=== PATIENT | female | born 1990 | race Caucasian/White ===

== ENCOUNTER → 2020-03-29 10:03 | Outpatient (BNVA) | payer SELFPAY | PROVIDERS: PCP Obstetrics & Gynecology; Visit Provider Nurse Practitioner Family | DX: J02.9 Acute pharyngitis, unspecified (principal) | CPT/HCPCS: 87880 ==

== ENCOUNTER → 2020-10-25 13:01 | Outpatient (BNVA) | payer MEDICAID, SELFPAY | PROVIDERS: PCP Obstetrics & Gynecology; Visit Provider Nurse Practitioner Women's Health | DX: N92.6 Irregular menstruation, unspecified (principal); Z32.01 Encounter for pregnancy test, result positive | CPT/HCPCS: 81025 ==

== ENCOUNTER → 2020-11-01 10:05 | Outpatient (BNVA) | payer MEDICAID, SELFPAY | PROVIDERS: PCP Obstetrics & Gynecology; Visit Provider Nurse Practitioner Women's Health | DX: O99.340 Other mental disorders complicating pregnancy, unspecified trimester (principal); F32.9 Major depressive disorder, single episode, unspecified | CPT/HCPCS: 81000 ==

== ENCOUNTER → 2020-11-06 08:57 | Outpatient (BNVA) | payer MEDICAID, SELFPAY | PROVIDERS: PCP Obstetrics & Gynecology; Visit Provider Obstetrics & Gynecology | DX: Z34.80 Encounter for supervision of other normal pregnancy, unspecified trimester (principal); K42.9 Umbilical hernia without obstruction or gangrene | CPT/HCPCS: 80307; 81000; 85027; 86592; 86762; 86803; 86850; 86900; 87086; 87340; 87806 ==

== ENCOUNTER → 2020-11-18 13:07 | Outpatient (BNVA) | payer MEDICAID, SELFPAY | PROVIDERS: PCP Obstetrics & Gynecology; Visit Provider Obstetrics & Gynecology | DX: O09.299 Supervision of pregnancy with other poor reproductive or obstetric history, unspecified trimester (principal) | CPT/HCPCS: 81000; 82950; 87491; 87591 ==

== ENCOUNTER → 2020-12-04 11:07 | Outpatient (BNVA) | payer MEDICAID, SELFPAY | PROVIDERS: PCP Obstetrics & Gynecology; Visit Provider Nurse Practitioner Women's Health | DX: O09.299 Supervision of pregnancy with other poor reproductive or obstetric history, unspecified trimester (principal); Z34.80 Encounter for supervision of other normal pregnancy, unspecified trimester; R45.86 Emotional lability; Z87.59 Personal history of other complications of pregnancy, childbirth and the puerperium; Z86.59 Personal history of other mental and behavioral disorders; K42.9 Umbilical hernia without obstruction or gangrene | CPT/HCPCS: 81000; 82105; 84439; 84443 ==

== ENCOUNTER 2021-01-16 19:55 | Outpatient (CLI) | payer MEDICAID, SELFPAY ==
[2021-01-16 19:55] VITALS: BMI 28.8
[2021-01-16 20:06] VITALS: BP 132/86; PULSE 101; TEMP 36.1
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
[2021-01-16 21:00] VITALS: BP 111/71; PULSE 95; RESP 16; TEMP 36.2
[2021-01-16 21:07] VITALS: BP 113/75; PULSE 92
[2021-01-16 21:29] VITALS: BP 111/71; PULSE 95; TEMP 36.4
== END 2021-01-16 21:00 | disposition home or self-care (01) ==
LOC: OPOB 19:56 → OBGYN 19:56
PROVIDERS: PCP Obstetrics & Gynecology; Visit Provider Obstetrics & Gynecology
DX: O99.891 Other specified diseases and conditions complicating pregnancy (principal); S39.91XA Unspecified injury of abdomen, initial encounter; X58.XXXA Exposure to other specified factors, initial encounter
CPT/HCPCS: 76815; 99211

== ENCOUNTER → 2021-01-27 10:31 | Outpatient (BNVA) | payer MEDICAID, SELFPAY | PROVIDERS: PCP Obstetrics & Gynecology; Visit Provider Nurse Practitioner Women's Health | DX: Z34.80 Encounter for supervision of other normal pregnancy, unspecified trimester (principal) | CPT/HCPCS: 81000 ==

== ENCOUNTER → 2021-02-18 11:39 | Outpatient (BNVA) | payer MEDICAID, SELFPAY | PROVIDERS: PCP Obstetrics & Gynecology; Visit Provider Obstetrics & Gynecology | DX: Z34.80 Encounter for supervision of other normal pregnancy, unspecified trimester (principal) | CPT/HCPCS: 81000; 82950; 85027 ==

== ENCOUNTER → 2021-04-02 09:15 | Outpatient (BNVA) | payer MEDICAID, SELFPAY | PROVIDERS: Visit Provider Obstetrics & Gynecology | DX: O36.63X0 Maternal care for excessive fetal growth, third trimester, not applicable or unspecified; O99.343 Other mental disorders complicating pregnancy, third trimester; R45.86 Emotional lability; O99.613 Diseases of the digestive system complicating pregnancy, third trimester; K42.9 Umbilical hernia without obstruction or gangrene; Z3A.34 34 weeks gestation of pregnancy | CPT/HCPCS: 81000 ==

== ENCOUNTER → 2021-04-16 15:46 | Outpatient (BNVA) | payer MEDICAID, SELFPAY | PROVIDERS: Visit Provider Obstetrics & Gynecology | DX: Z34.80 Encounter for supervision of other normal pregnancy, unspecified trimester (principal) | CPT/HCPCS: 81000; 87081 ==

== ENCOUNTER → 2021-04-21 13:10 | Outpatient (BNVA) | payer MEDICAID, SELFPAY | PROVIDERS: Visit Provider Obstetrics & Gynecology | DX: O36.60X0 Maternal care for excessive fetal growth, unspecified trimester, not applicable or unspecified (principal); R45.86 Emotional lability; K42.9 Umbilical hernia without obstruction or gangrene | CPT/HCPCS: 81000 ==

== ENCOUNTER 2021-05-04 01:31 | Inpatient (IN) | payer MEDICAID, SELFPAY ==
[2021-05-04] VITALS (30 sets, daily range): BP systolic 113–187; BP diastolic 65–98; PULSE 78–111; RESP 16–18; TEMP 36.7–37.1; BMI 30.4
--- NOTE | 2021-05-04 01:45 | P.HP_ITS ---
Providers/Chief Complaint Admitting Physician: Dina Brasher Primary HEALTH AND SAFETY TECHNICIAN: Dr. Vargas Chief Complaint: POSSIBLE ROM, CONTRACTIONS HPI HEALTH AND SAFETY TECHNICIAN History of Present Illness Yamileth Zacarias is a 31 year old female who reports a gush of fluid shortly before arrival accompanied by frequent and painful contractions. She is a at 38w 6d gestation with uncomplicated care. She reports good FM, Pos LOF, Denies vaginal bleeding and has frequent painful contractions occurring every 3 minutes. She has a hx of macrosomia with her last baby weighing over 9#. Present Details : 4 Para: 2 Date of Last Menstrual Period: 08/05/20 Calculated Date of Delivery: 05/12/21 Gestational Age Based on Last Menstrual Period: 38 Labs Rubella: Immune RPR: Negative GBS: Negative Review of Systems General: Reports: 10 or more systems reviewed and unremarkable except in HPI and below Medications/Allergies Home Medications Medication Instructions Recorded Confirmed Last Taken Type prenat.vits,ammon,sab-gdgk-dufyx 1 tab PO QDAY 02/24/19 05/04/21 2 Days Ago History ~05/02/21 cholecalciferol (vitamin D3) 50 50 mcg PO DAILY 03/29/20 05/04/21 2 Days Ago History mcg (2,000 unit) capsule ~05/02/21 folic acid 400 mcg tablet 0.4 mg PO DAILY 03/29/20 05/04/21 2 Days Ago History ~05/02/21 acetaminophen 500 mg tablet 1,000 mg PO Q6H PRN tab 11/18/20 05/04/21 05/02/21 History (Tylenol Extra Strength) ascorbate calcium (vitamin C) PO 03/03/21 04/28/21 2 Days Ago History ~05/02/21 breast pump (Pump In Style #1 ea 03/03/21 04/28/21 Unknown Rx Advanced) buspirone 15 mg tablet 15 mg PO BID #90 tab 04/21/21 05/04/21 05/03/21 21:00 Rx Allergies Allergy/AdvReac Type Severity Reaction Status Date / Time No Known Allergies Allergy Verified 05/04/21 02:57 PFSH HEALTH AND SAFETY TECHNICIAN PFSH: Medical History 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 Arcenio venegas. 06/2016: Toxo PCR negative, IgM negative, IgG positive. No pertinent past medical history Denies diabetes, asthma, hypertension, seizures, DVT/PE PCP: None Surgical History History of appendectomy 2007--laparoscopic procedure History of surgical removal of ganglion cyst 2010----left wrist [place] teeth extracted Family History Father Thyroid condition Family/Other Stroke Paternal great uncle Heart disease Maternal great aunt Grandfather Stroke Paternal Hypertension Paternal Denies family history of Colon cancer Ovarian cancer Diabetes Hyperlipidemia Breast cancer Uterine cancer Other Female Reproductive History: Hx Age of Menarche: 12 History History History 4 Term 2 Miscarriages/Ectopic 1 0 Living Children 2 Care SREEDHAR Calculator Estimated Delivery Date Method Current WG Current Estimate 05/12/21 LMP (Certain) 38w 6d Other Estimates 05/06/21 Ultrasound #1 39w 5d Expected Delivery Route/Plan Vaginal Specific Issues/Plans * Anxiety-present throughout the -patient started medication-BuSpar 7.5 mg at 32 weeks. Increase to 15 mg twice daily at 34 weeks and she is doing well with this dose-refill provided on the * History of LGA-early GCT and 28-week GCT negative. * Incarcerated umbilical hernia-status post surgery consult--reassess orders problems develop intrapartum * Macrosomia in the 91st percentile-sonogram for growth at 36 weeks- growth at 97th percentile Vitals/I&O/Wt Last Vital Signs Temp 98.8 F 05/04/21 10:21 Pulse 98 05/04/21 10:18 Resp 16 05/04/21 10:21 BP 113/66 05/04/21 10:18 05/03/21 05/04/21 05/04/21 22:59 06:59 14:59 Output Total 50 / 50 500 / 500 Balance -50 / -50 -500 / -500 Weight last 48 hrs Weight 172 lb Weight 172 lb 0.004 oz Physical Exam Narrative: alert and appropriate. cooperative and in mild distress with painful contractions Const: COMMON NORMALS: average body habitus, patient oriented x3, healthy appearing and well nourished HENMT: COMMON NORMALS: normocephalic, atraumatic, hearing grossly normal bilaterally, external ears normal, Normal external nose present, moist oral mucous membranes and dentition normal Eye: COMMON NORMALS: EOMs intact bilaterally, conjunctivae normal and no scleral icterus Neck/C-Spine: COMMON NORMALS: full ROM, no lymphadenopathy, supple, no JVD and Thyroid normal Lymph: LYMPHATIC: no lymphadenopathy noted and no lymphedema noted Chest: COMMONS NORMALS: normal inspection of the chest and normal inspection of the breasts Resp: COMMON NORMALS: normal respiratory effort, No retractions and No use of accessory muscles Cardio: COMMON NORMALS: no JVD, regular rate, regular rhythm and Peripheral pulses 2+ throughout GI: COMMON NORMALS: Normal to inspection, nondistended, normoactive bowel sounds present, Soft to palpation and non-tender : COMMON NORMALS: Yes no CVA tenderness, Yes normal external appearance, Yes normal appearance of the vagina and Yes normal appearance of the cervix OB/EXTERNAL & SPECULUM: external exam normal; No no bleeding and no MANUAL OB EXAM: dilated 8 cm, effaced 75%, station -2 and other (SROM with small clear fluid) Back/Pelvis: COMMON NORMALS: no CVA tenderness and thoracic and lumbar spine normal to inspection Extremity: COMMON NORMALS: normal to inspection, full ROM, capillary refill normal and no clubbing, cyanosis or edema Neuro: COMMON NORMALS: patient oriented x3, moves all extremities, no focal motor deficits and no sensory deficits noted Psych: COMMON NORMALS: mental status grossly normal, Normal thought process present, cooperative, normal affect and speech normal Skin: COMMON NORMALS: no rashes or lesions noted, no wounds, turgor normal and no jaundice Data : 05/04/21 01:30 A&P Assessment and plan (1) macrosomia affecting management of mother, antepartum: Status: Acute (2) Mood swing: Status: Acute (3) Umbilical hernia: Status: Acute (4) Supervision of other normal : Status: Acute (5) Active labor at term: admit anticipate Status: Acute Attestations Medical Necessity Statement*: admitted with 38w6d gestation in active labor with SROM Time Spent in Patient Care: 30 Coding Level of Care Code Acute Microsoft Architect for Chg Fwd Diagnoses macrosomia affecting management of mother, antepartum O36.60X0 Mood swing R45.86 Umbilical hernia K42.9 Supervision of other normal Z34.80 Active labor at term
[2021-05-04 01:56] LABS: Basophils % 0.2 %; Eosinophils # 0.1 10^3/uL (0.0-0.8); Hematocrit 39.7 % (37.0-47.0); Hemoglobin 13.5 g/dL (11.5-15.3); Lymphocytes # 2.5 10^3/uL (0.8-4.8); Mean Corpuscular Hemoglobin 29.9 pg (28.0-34.0); Mean Corpuscular Volume 87.8 fl (81-99); Mean Platelet Volume 12.3 fL (7.4-10.4); Monocytes # 0.8 10^3/uL (0.2-0.9); Monocytes % 9.5 %; Neutrophils # 4.73 10^3/uL (1.8-7.7); Neutrophils % 57.7 %; Nucleated Red Blood Cells % 0 %; Platelet Count 173 10^3/cmm (130-400); Red Blood Count 4.52 10^6/uL (4.1-5.3); Red Cell Distribution Width 14.4 % (12.1-15.1); White Blood Count 8.2 10^3/uL (4.0-10.0)
[2021-05-04] MEDS: benzocaine-menthol 78 gm Canister 1 SPRAY TOPICAL (04:45)
[2021-05-04] MEDS: lanolin oint 7 gm 1 APPLIC TOPICAL (04:45)
[2021-05-04] MEDS: prenatal vitamin Capsule 1 CAP PO (08:30)
[2021-05-04] MEDS: ibuprofen 800 mg tablet PO ×3 (08:30→20:20)
[2021-05-04] MEDS: docusate sodium 100 mg Capsule PO ×2 (08:30→19:31)
--- NOTE | 2021-05-04 12:34 | PM.DELIVERY ---
Delivery Note: Date of delivery: May 04, 2021 Pre-delivery diagnoses: active labor SROM 38w6d gestation Post-delivery diagnoses: same Procedure: Delivering Physician: vicky Brasher Estimated blood loss (mL): 300 Findings: viable male Pre-Delivery Course: pt admitted in active labor with SROM clear fluid at 38w 6d gestation Delivery: pt progressed to complete cervical dilation and delivered a viable male infant from the oa position without complication without anesthesia over a 2nd degree midline laceration. EBL 300ml. Placenta delivered spontaneously intact with a 3 vc. Laceration repaired in a layered fashion woth 3-0 vicryl. Cervix and rectum noted to be intact. No complications. Post-Delivery Status: mom and baby stable History History History 4 Term 2 Miscarriages/Ectopic 1 0 Living Children 2 A&P Assessment and plan (1) Normal spontaneous vaginal delivery: routine care Status: Acute (2) Active labor at term: Status: Acute (3) macrosomia affecting management of mother, antepartum: Status: Acute (4) Mood swing: Status: Acute (5) Umbilical hernia: Status: Acute (6) Supervision of other normal : Status: Acute Coding Level of Care Code Acute Training Personnel Supervisor for Chg Fwd Diagnoses Normal spontaneous vaginal delivery O80 Active labor at term macrosomia affecting management of mother, antepartum O36.60X0 Mood swing R45.86 Umbilical hernia K42.9 Supervision of other normal Z34.80 Time Spent (min) 90
[2021-05-04 14:41] LABS: Hematocrit 33.6 % (37.0-47.0); Hemoglobin 11.2 g/dL (11.5-15.3); Mean Corpuscular HGB Conc 33.3 g/dL (30.0-36.0); Mean Corpuscular Hemoglobin 29.4 pg (28.0-34.0); Mean Corpuscular Volume 88.2 fl (81-99); Mean Platelet Volume 12.5 fL (7.4-10.4); Platelet Count 165 10^3/cmm (130-400); Red Blood Count 3.81 10^6/uL (4.1-5.3); Red Cell Distribution Width 14.6 % (12.1-15.1); White Blood Count 9.3 10^3/uL (4.0-10.0)
[2021-05-05 04:52] VITALS: BP 120/74; PULSE 105
[2021-05-05] MEDS: docusate sodium 100 mg Capsule PO (09:07)
[2021-05-05] MEDS: prenatal vitamin Capsule 1 CAP PO (09:07)
[2021-05-05] MEDS: ibuprofen 800 mg tablet PO (09:07)
[2021-05-05 10:24] VITALS: BP 122/69; PULSE 113
--- NOTE | 2021-05-05 10:24 | P.DS_ITS ---
Discharge Providers HOME RESTORATION SERVICE CLEANER Date of Admission: 05/04/21 01:31 Date of Discharge: 05/05/21 Attending Provider at Admission: Dina Brasher Attending Provider at Discharge: Dina Brasher Primary HOME RESTORATION SERVICE CLEANER: Dr. Vargas Diagnoses at Discharge Discharge Diagnosis (1) Normal spontaneous vaginal delivery: Details from hospital stay: Pt admitted in active labor with SROM of clear fluid and progressed to deliver a vaible male without complication. 2nd degree laceration with uncomplicated repair. Discharge pp day #1. Denies need for BC. Mom and baby stable at discharge. Status: Acute (2) Mood swing: Details from hospital stay: stable since delivery Status: Acute (3) Umbilical hernia: Details from hospital stay: condition stable Status: Acute Reason for Visit Reason for Visit: POSSIBLE ROM, CONTRACTIONS Brief History: Pt presented in active labor with SROM at home just prior to arrival. 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 She had a of a viable male with a 2nd degree lac repaired and had an uncomplicated pp course. She was discharged on pp day #1 and mm and baby were in stable condition. Information Peripartum Data: Delivery Method: Vaginal Laceration description: Perineal - 2nd Degree complications: none Physical Exam Narrative: feeling well without complaints, alert and coopreative. Const: COMMON NORMALS: no acute distress, average body habitus, patient oriented x3, healthy appearing, alert and well nourished HENMT: COMMON NORMALS: normocephalic, atraumatic, hearing grossly normal bilaterally, Normal external nose present and moist oral mucous membranes HEAD & SCALP: normocephalic and atraumatic NOSE: Normal external nose present Eye: COMMON NORMALS: EOMs intact bilaterally, conjunctivae normal and no scleral icterus CONJUNCTIVA: Yes conjunctivae normal Neck/C-Spine: COMMON NORMALS: full ROM, supple and no JVD Lymph: LYMPHATIC: no lymphadenopathy noted Chest: COMMONS NORMALS: normal inspection of the chest Cardio: COMMON NORMALS: no JVD and regular rate RATE: regular rate GI: COMMON NORMALS: Normal to inspection, nondistended, normoactive bowel sounds present, Soft to palpation and non-tender PALPATION: Yes Soft to palpation : UTERUS PALPATION: Yes Other OB uterine findings (involuting ) Extremity: COMMON NORMALS: normal to inspection, full ROM and no clubbing, cyanosis or edema Neuro: COMMON NORMALS: patient oriented x3, moves all extremities, no focal motor deficits, no sensory deficits noted and gait normal SENSORIUM/ORIE NTATION: Yes alert Psych: COMMON NORMALS: mental status grossly normal, Normal thought process present, cooperative, normal affect and speech normal SPEECH: Yes normal speech THOUGHT PROCESS: Normal thought process present Skin: COMMON NORMALS: no rashes or lesions noted, turgor normal and no jaundice GENERAL SKIN EXAM: no rashes or lesions noted and turgor normal History History History 4 Term 3 Miscarriages/Ectopic 1 0 Living Children 3 Discharge Data Studies Completed and Pending Laboratory Results WBC 9.3 10^3/uL (4.0-10.0) 05/04/21 14:25 RBC 3.81 10^6/uL (4.1-5.3) L 05/04/21 14:25 Hgb 11.2 g/dL (11.5-15.3) L 05/04/21 14:25 Hct 33.6 % (37.0-47.0) L 05/04/21 14:25 MCV 88.2 fl (81-99) 05/04/21 14:25 MCH 29.4 pg (28.0-34.0) 05/04/21 14:25 MCHC 33.3 g/dL (30.0-36.0) 05/04/21 14:25 RDW 14.6 % (12.1-15.1) 05/04/21 14:25 Plt Count 165 10^3/cmm (130-400) 05/04/21 14:25 MPV 12.5 fL (7.4-10.4) H 05/04/21 14:25 Neut % (Auto) 57.7 % 05/04/21 01:30 Lymph % (Auto) 31.0 % 05/04/21 01:30 [place] % (Auto) 9.5 % 05/04/21 01:30 Eos % (Auto) 1.0 % 05/04/21 01:30 Baso % (Auto) 0.2 % 05/04/21 01:30 Neut # (Auto) 4.73 10^3/uL (1.8-7.7) 05/04/21 01:30 Lymph # (Auto) 2.5 10^3/uL (0.8-4.8) 05/04/21 01:30 [place] # (Auto) 0.8 10^3/uL (0.2-0.9) 05/04/21 01:30 Eos # (Auto) 0.1 10^3/uL (0.0-0.8) 05/04/21 01:30 Baso # (Auto) 0.0 10^3/uL (0.0-0.1) 05/04/21 01:30 Nucleated RBC % (auto) 0 % 05/04/21 01:30 Nucleated RBCs # 0.0 /100WBC 05/04/21 01:30 Procedures Performed on 05/04/21 Vitals Last Vital Signs Temp 98.6 F 05/04/21 17:15 Pulse 105 H 05/05/21 04:52 Resp 16 05/04/21 17:15 BP 120/74 05/05/21 04:52 Discharge Plan Discharge Prescriptions: New ibuprofen 800 mg Tablet 800 mg PO TID 30 Days Qty: 40 0RF Continued cholecalciferol (vitamin D3) 50 mcg (2,000 unit) capsule 50 mcg PO DAILY 0RF folic acid 400 mcg tablet 0.4 mg PO DAILY 0RF acetaminophen [Tylenol Extra Strength] 500 mg tablet 1,000 mg PO Q6H PRN (Reason: Pain) 0RF prenat.vits,ammon,fxc-chbc-jowxd Tablet 1 tab PO QDAY 0RF (DME) breast pump [Pump In Style Advanced] Device See Rx Instructions .MEDSUPPLY Qty: 1 0RF Rx Instructions: As directed buspirone 15 mg tablet 15 mg PO BID Qty: 90 0RF Discontinued ascorbate calcium (vitamin C) PO 0RF Discharge Orders: Discharge Order (Routine); Ordered 05/05/21 Ordered By: Dina Brasher Patient Instructions: Depression (DC), Bleeding (DC), Preeclampsia and Eclampsia After Delivery (GEN), OB Discharge Report, OB Food/Drug Interaction Guide, OB Care at Home, Opioid Safety, OB Home Care, OB Proud Parent Packet, OB Vaginal Deliveries - [facility], Abnormal Bleeding Discharge Attestations HOME RESTORATION SERVICE CLEANER Time Spent in Discharge Care*: greater than 30 min Coding Level of Care Code Acute Marketing And Outreach Coordinator for Chg Fwd Diagnoses Normal spontaneous vaginal delivery O80 Mood swing R45.86 Umbilical hernia K42.9
[2021-05-05 12:30] VITALS: BP 118/70; PULSE 108; RESP 18; TEMP 36.6
== END 2021-05-05 12:43 | disposition home or self-care (01) | DRG 806 ==
LOC: OPOB 05-05 09:17 → OBGYN 05-05 09:17
PROVIDERS: Admitting Provider Obstetrics & Gynecology; Visit Provider Obstetrics & Gynecology
DX: O36.63X0 Maternal care for excessive fetal growth, third trimester, not applicable or unspecified (principal); O41.03X0 Oligohydramnios, third trimester, not applicable or unspecified; Z37.0 Single live birth; O99.344 Other mental disorders complicating childbirth; O70.1 Second degree perineal laceration during delivery; Z3A.38 38 weeks gestation of pregnancy; F41.9 Anxiety disorder, unspecified; O75.89 Other specified complications of labor and delivery; K42.9 Umbilical hernia without obstruction or gangrene
CPT/HCPCS: 36415; 59409; 83986; 85025; 85027

== ENCOUNTER → 2021-06-18 13:30 | Outpatient (BNVA) | payer MEDICAID, SELFPAY | PROVIDERS: Visit Provider Obstetrics & Gynecology | DX: Z12.4 Encounter for screening for malignant neoplasm of cervix (principal) | CPT/HCPCS: 87624 ==

== ENCOUNTER → 2021-07-15 15:12 | Outpatient (BNVA) | payer MEDICAID, SELFPAY | PROVIDERS: Visit Provider Obstetrics & Gynecology | DX: R87.810 Cervical high risk human papillomavirus (HPV) DNA test positive (principal); R87.612 Low grade squamous intraepithelial lesion on cytologic smear of cervix (LGSIL) | CPT/HCPCS: 81025; 88305; 88342 ==

== ENCOUNTER 2021-08-14 13:05 | Day surgery (SDC) | payer MEDICAID, SELFPAY ==
[2021-08-13 12:13] VITALS: BMI 28.7
--- NOTE | 2021-08-14 13:38 | W.PM.OPSUD ---
Surgery/Procedure H&P Update DATE OF PROCEDURE: August 14, 2021 DATE H&P PERFORMED: 08/28/21 H&P UPDATE INFORMATION: I have reviewed H&P completed within last 30 days, I have examined patient prior to procedure, No changes to prior documentation and H&P is in [facility] EMR on date indicated PREOP DIAGNOSIS: AYSE 2 PLANNED PROCEDURE: Operation Date: 08/14/21 14:40 Proposed Procedures p [facility] 55928,N87.1(Not Applicable) - Faye Teran MD
[2021-08-14 13:50] VITALS: BP 132/85; PULSE 82; RESP 18; TEMP 36.3; O2SAT 98
[2021-08-14] MEDS: sodium chloride 0.9% 1,000 ML 30 ML IV (13:56)
--- NOTE | 2021-08-14 14:00 | P.ANESASSM_ITS ---
Pre-Anesthetic Assessment Height/Weight: Height 1.6 m Weight 73.482 kg Temp Pulse Resp BP Pulse Ox 97.4 F L 82 18 132/85 98 08/14/21 13:50 08/14/21 13:50 08/14/21 13:50 08/14/21 13:50 08/14/21 13:50 Preop Diagnosis: AYSE 2 Operation Date: 08/14/21 14:40 Proposed Procedures p LEEP 12935,N87.1(Not Applicable) - Faye Teran MD Familial anesthetic complications: None Was Beta Nemo taken within 24 hours: N/A Was Clonidine taken within 24 hours: N/A Last intake: Intake Last Liquid Date 08/13/21 Last Liquid Time 23:00 Last Solid Date 08/13/21 Last Solid Time 23:40 Social No alcohol and No tobacco Exam alert, oriented x 3, clear to auscultation bilaterally and regular rate & rhythm Airway Mallampati: Class II Dentition: full Neuropsych Anxiety Anesthetic Plan ASA status: 2 Anesthesia: General Risk of > 500 ml blood loss (7ml/kg in children): No Medications/Allergies Home Medications Medication Instructions Recorded Confirmed Last Taken Type prenat.vits,ammon,jih-ssth-zruyu 1 tab PO QDAY 02/24/19 08/13/21 2 Days Ago History ~05/02/21 cholecalciferol (vitamin D3) 50 50 mcg PO DAILY 03/29/20 08/13/21 2 Days Ago History mcg (2,000 unit) capsule ~05/02/21 folic acid 400 mcg tablet 0.4 mg PO DAILY 03/29/20 08/13/21 2 Days Ago History ~05/02/21 acetaminophen 500 mg tablet 1,000 mg PO Q6H PRN tab 11/18/20 08/13/21 05/02/21 History (Tylenol Extra Strength) buspirone 15 mg tablet 15 mg PO BID 90 Days #180 tab 06/18/21 08/13/21 Unknown Rx Allergies Allergy/AdvReac Type Severity Reaction Status Date / Time No Known Allergies Allergy Verified 08/13/21 12:11 Current Medications Generic Name Dose Route Start Last Admin Trade Name Freq PRN Reason Stop Dose Admin Sodium Chloride 1,000 mls @ 30 mls/hr 08/14/21 13:30 08/14/21 13:56 Sodium Chloride 0.9% IV 08/15/21 13:29 30 mls/hr .Q24H BRAXTON Administration PFSH Anesthesia Medical History 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 Rg. 06/2016: Toxo PCR negative, IgM negative, IgG positive. No pertinent past medical history Denies diabetes, asthma, hypertension, seizures, DVT/PE PCP: None Surgical History History of appendectomy 2007--laparoscopic procedure History of surgical removal of ganglion cyst 2010----left wrist [place] teeth extracted Family History Father Thyroid condition Family/Other Stroke Paternal great uncle Heart disease Maternal great aunt Grandfather Stroke Paternal Hypertension Paternal Denies family history of Colon cancer Ovarian cancer Diabetes Hyperlipidemia Breast cancer Uterine cancer Female Reproductive History Date of last menstrual period: 08/05/20 Data Anesthesia Cardiac Studies: No Data to Display
[2021-08-14] MEDS: midazolam 1 mg/mL INJ 2 mL 2 MG IVP (14:01)
[2021-08-14 14:08] LABS: Basophils % 0.4 %; Eosinophils # 0.1 10^3/uL (0.0-0.8); Eosinophils % 1.7 %; Hematocrit 39.4 % (37.0-47.0); Hemoglobin 13.1 g/dL (11.5-15.3); Lymphocytes # 2.7 10^3/uL (0.8-4.8); Lymphocytes % 39.5 %; Mean Corpuscular HGB Conc 33.2 g/dL (30.0-36.0); Mean Corpuscular Hemoglobin 28.2 pg (28.0-34.0); Mean Corpuscular Volume 84.7 fl (81-99); Mean Platelet Volume 11.5 fL (7.4-10.4); Monocytes # 0.5 10^3/uL (0.2-0.9); Monocytes % 7.7 %; Neutrophils # 3.48 10^3/uL (1.8-7.7); Neutrophils % 50.6 %; Nucleated Red Blood Cells % 0 %; Platelet Count 238 10^3/cmm (130-400); Red Blood Count 4.65 10^6/uL (4.1-5.3); Red Cell Distribution Width 13.1 % (12.1-15.1); White Blood Count 6.9 10^3/uL (4.0-10.0)
--- NOTE | 2021-08-14 16:28 | SUR.OPER ---
MONSELS, VINEGAR, AND LUGOLS WERE USED IN THE VAGINA
--- NOTE | 2021-08-14 16:30 | P.OP_ITS ---
Operative Report Date of procedure: August 14, 2021 OPERATIVE REPORT Date of surgery: 08/14/2021 Date of dictation: 08/14/2021 Preoperative diagnosis: AYSE-2 Postoperative diagnosis/findings: Same, on colposcopy dense acetowhite lesions noted as before extending from 11:00 to 6:00. Squamocolumnar junction is not clearly seen today. Procedure done: LEEP Specimens removed/disposition of specimens: LEEP portion of cervix, post LEEP ECC Surgeon: Dr. Faye Vargas Batch Mixer: Karyn Anesthesia:MAC Estimated blood loss: 25 ml Intravenous fluids: 500 Urine output: None Medications: As per anesthesia records Complications: None, patient was taken to the recovery room in stable condition PROCEDURE: After informed consent was obtained patient was placed in lithotomy position and was grounded. MAC was performed without difficulty and patient is comfortable. Coated speculum was applied into the vagina and care was taken to ensure good separation of the vaginal tissue from the cervix. Acetic acid was placed over the cervix and acetowhite area noted as above. Once analgesia was confirmed, using a loop electrode LEEP procedure was done starting from top to bottom including the whole transformation zone. It was tagged at 12:00. Once this was done endocervical curettage was performed both with a curet and Cytobrush and the specimens were sent to pathology. Using the rollerball cautery hemostasis was obtained over the cervix. Good hemostasis was achieved. Monsel's was used over this area as well. Good hemostasis noted. All instruments were removed and patient tolerated the procedure well FOLLOW UP: Follow-up in 2 weeks and 6 weeks with surgeon MEDICATION ON DISCHARGE: Colace 100 mg by mouth every 12 hours when necessary constipation, 30 tablets, no refills Ibuprofen 800 mg by mouth every 8 hours when necessary pain, 60 tablets, no refills. Roll[place] 5/325 mg 1 tablet by mouth every 6 hours when necessary pain,10 tablets, no refills Continue other home medication DISPOSITION: Home in a stable condition This documentation was created by [employer] underground bolting machine operator software (known for inherent underground bolting machine operator error). Every effort was made to assure accuracy of underground bolting machine operator. Any obvious errors or omissions should be clarified with the author of the document. Pre-op diagnosis: Preop Diagnosis AYSE 2
[2021-08-14 16:31] VITALS: BP 113/74; PULSE 86; RESP 20; TEMP 36.3; O2SAT 100
[2021-08-14 16:36] VITALS: BP 119/68; PULSE 78; RESP 18; O2SAT 97
--- NOTE | 2021-08-14 16:40 | ANE.PACU2 ---
Inpatient post-anesthesia follow up: Airway intact: Yes Vital signs: Temperature 97.3 F Pulse Rate 78 Respiratory Rate 18 Blood Pressure 119/68 Pulse Oximetry 97 Oxygen Delivery Me thod Room Air Oxygen Flow Rate Fraction of Inspir ed Oxygen Hydration adequate: Yes Nausea and vomiting: No Pain level: 1 Mental status: Baseline
[2021-08-14 16:41] VITALS: BP 123/79; PULSE 72; RESP 18; TEMP 36.4; O2SAT 98
[2021-08-14 16:50] VITALS: BP 133/82; PULSE 69; RESP 14; TEMP 36.8; O2SAT 97
[2021-08-14 17:39] VITALS: BP 128/85; PULSE 76; RESP 16; TEMP 36.6; O2SAT 98
[2021-08-14] MEDS: HYDROcodone-acetaminophen 5-325 mg Tablet 1 TAB PO (17:48)
== END 2021-08-14 18:00 | disposition home or self-care (01) ==
PROVIDERS: Visit Provider Obstetrics & Gynecology
PROC: 0UBC7ZZ Excision of Cervix, Via Natural or Artificial Opening (ICD-10-PCS; CPT 57522; principal; 2021-08-14 14:30)
DX: N87.1 Moderate cervical dysplasia (principal); F41.9 Anxiety disorder, unspecified
CPT/HCPCS: 57460; 58110; 36415; 81025; 85025; 86850; 86900; 88305; 88307; J2250; J2405; J2704; J3010; J3490; J7030

== ENCOUNTER → 2021-10-21 11:48 | Outpatient (BNVA) | payer MEDICAID, SELFPAY | PROVIDERS: Visit Provider Emergency Medicine | DX: J02.0 Streptococcal pharyngitis (principal) | CPT/HCPCS: 87880 ==

== ENCOUNTER → 2022-01-06 08:54 | Outpatient (BNVA) | payer MEDICAID, SELFPAY | PROVIDERS: PCP Family Medicine; Visit Provider Nurse Practitioner Family | DX: J02.9 Acute pharyngitis, unspecified (principal) | CPT/HCPCS: 87880 ==

== ENCOUNTER → 2022-03-06 09:20 | Outpatient (BNVA) | payer MEDICAID, SELFPAY | PROVIDERS: PCP Family Medicine; Visit Provider Family Medicine | DX: F53.0 Postpartum depression (principal); G44.209 Tension-type headache, unspecified, not intractable; Z13.220 Encounter for screening for lipoid disorders; Z13.6 Encounter for screening for cardiovascular disorders | CPT/HCPCS: 80053; 80061; 85025 ==

== ENCOUNTER → 2022-09-14 14:20 | Outpatient (BNVA) | payer MEDICAID, SELFPAY | PROVIDERS: PCP Family Medicine; Visit Provider Obstetrics & Gynecology | DX: Z12.4 Encounter for screening for malignant neoplasm of cervix (principal) | CPT/HCPCS: 87624 ==

== ENCOUNTER → 2022-11-05 18:08 | Outpatient (BNVA) | payer MEDICAID, SELFPAY | PROVIDERS: PCP Family Medicine; Visit Provider Registered Nurse Neonatal Intensive Care | DX: J02.9 Acute pharyngitis, unspecified (principal) | CPT/HCPCS: 87071; 87880 ==

== ENCOUNTER → 2022-12-10 10:26 | Outpatient (BNVA) | payer MEDICAID, SELFPAY | PROVIDERS: PCP Family Medicine; Visit Provider Nurse Practitioner Women's Health | DX: Z32.00 Encounter for pregnancy test, result unknown (principal) | CPT/HCPCS: 81025 ==

== ENCOUNTER → 2022-12-22 13:34 | Outpatient (BNVA) | payer MEDICAID, SELFPAY | PROVIDERS: PCP Family Medicine; Visit Provider Nurse Practitioner Women's Health | DX: Z34.90 Encounter for supervision of normal pregnancy, unspecified, unspecified trimester (principal) | CPT/HCPCS: 80307; 81000; 84443; 85025; 86592; 86762; 86803; 86850; 86900; 87086; 87340; 87806 ==

== ENCOUNTER → 2022-12-24 13:19 | Outpatient (BNVA) | payer MEDICAID, SELFPAY | PROVIDERS: PCP Family Medicine; Visit Provider Obstetrics & Gynecology | DX: Z34.90 Encounter for supervision of normal pregnancy, unspecified, unspecified trimester (principal) | CPT/HCPCS: 76830 ==

== ENCOUNTER → 2023-01-04 14:43 | Outpatient (BNVA) | payer MEDICAID, SELFPAY | PROVIDERS: PCP Family Medicine; Visit Provider Obstetrics & Gynecology | DX: O09.899 Supervision of other high risk pregnancies, unspecified trimester (principal); Z3A.12 12 weeks gestation of pregnancy | CPT/HCPCS: 81000 ==

== ENCOUNTER → 2023-01-15 07:48 | Outpatient (BNVA) | payer MEDICAID, SELFPAY | PROVIDERS: PCP Family Medicine; Visit Provider Nurse Practitioner Women's Health | DX: O09.899 Supervision of other high risk pregnancies, unspecified trimester (principal); Z3A.00 Weeks of gestation of pregnancy not specified | CPT/HCPCS: 87806 ==

== ENCOUNTER → 2023-01-20 13:45 | Outpatient (BNVA) | payer MEDICAID, SELFPAY | PROVIDERS: PCP Family Medicine; Visit Provider Obstetrics & Gynecology | DX: O09.899 Supervision of other high risk pregnancies, unspecified trimester (principal); Z3A.00 Weeks of gestation of pregnancy not specified | CPT/HCPCS: 81000; 87491; 87591; 87624 ==

== ENCOUNTER → 2023-01-21 13:44 | Outpatient (BNVA) | payer MEDICAID, SELFPAY | PROVIDERS: PCP Family Medicine; Visit Provider Obstetrics & Gynecology | DX: O09.899 Supervision of other high risk pregnancies, unspecified trimester (principal); Z3A.00 Weeks of gestation of pregnancy not specified | CPT/HCPCS: 76817 ==

== ENCOUNTER → 2023-02-04 12:28 | Outpatient (BNVA) | payer MEDICAID, SELFPAY | PROVIDERS: PCP Family Medicine; Visit Provider Nurse Practitioner Women's Health | DX: O09.899 Supervision of other high risk pregnancies, unspecified trimester (principal); Z3A.16 16 weeks gestation of pregnancy | CPT/HCPCS: 76817; 81000 ==

== ENCOUNTER → 2023-02-18 13:08 | Outpatient (BNVA) | payer MEDICAID, SELFPAY | PROVIDERS: PCP Family Medicine; Visit Provider Obstetrics & Gynecology | DX: O09.899 Supervision of other high risk pregnancies, unspecified trimester (principal); Z3A.00 Weeks of gestation of pregnancy not specified | CPT/HCPCS: 76817; 81000; 82105; 87624 ==

== ENCOUNTER → 2023-03-04 13:16 | Outpatient (BNVA) | payer MEDICAID, SELFPAY | PROVIDERS: PCP Family Medicine; Visit Provider Obstetrics & Gynecology | DX: O09.899 Supervision of other high risk pregnancies, unspecified trimester (principal); Z3A.20 20 weeks gestation of pregnancy | CPT/HCPCS: 76805; 76817 ==

== ENCOUNTER → 2023-03-08 09:02 | Outpatient (BNVA) | payer MEDICAID, SELFPAY | PROVIDERS: PCP Family Medicine; Visit Provider Obstetrics & Gynecology | DX: O09.899 Supervision of other high risk pregnancies, unspecified trimester (principal); Z3A.20 20 weeks gestation of pregnancy | CPT/HCPCS: 81000 ==

== ENCOUNTER → 2023-03-18 13:14 | Outpatient (BNVA) | payer MEDICAID, SELFPAY | PROVIDERS: PCP Family Medicine; Visit Provider Obstetrics & Gynecology | DX: O09.892 Supervision of other high risk pregnancies, second trimester (principal); Z3A.20 20 weeks gestation of pregnancy | CPT/HCPCS: 76815; 76817 ==

== ENCOUNTER → 2023-03-29 08:06 | Outpatient (BNVA) | payer MEDICAID, SELFPAY | PROVIDERS: PCP Family Medicine; Visit Provider Obstetrics & Gynecology | DX: O09.899 Supervision of other high risk pregnancies, unspecified trimester (principal); Z3A.24 24 weeks gestation of pregnancy | CPT/HCPCS: 81000 ==

== ENCOUNTER → 2023-04-01 13:20 | Outpatient (BNVA) | payer MEDICAID, SELFPAY | PROVIDERS: PCP Family Medicine; Visit Provider Obstetrics & Gynecology | DX: Z34.90 Encounter for supervision of normal pregnancy, unspecified, unspecified trimester (principal) | CPT/HCPCS: 76817 ==

== ENCOUNTER → 2023-04-05 11:03 | Outpatient (BNVA) | payer MEDICAID, SELFPAY | PROVIDERS: PCP Family Medicine; Visit Provider Obstetrics & Gynecology | DX: O09.899 Supervision of other high risk pregnancies, unspecified trimester (principal) | CPT/HCPCS: 81000 ==

== ENCOUNTER → 2023-04-15 13:17 | Outpatient (BNVA) | payer MEDICAID, SELFPAY | PROVIDERS: PCP Family Medicine; Visit Provider Obstetrics & Gynecology | DX: O09.899 Supervision of other high risk pregnancies, unspecified trimester (principal); Z3A.00 Weeks of gestation of pregnancy not specified | CPT/HCPCS: 76817 ==

== ENCOUNTER → 2023-04-26 14:02 | Outpatient (BNVA) | payer MEDICAID, SELFPAY | PROVIDERS: PCP Family Medicine; Visit Provider Obstetrics & Gynecology | DX: O09.899 Supervision of other high risk pregnancies, unspecified trimester (principal); Z3A.28 28 weeks gestation of pregnancy | CPT/HCPCS: 81000; 82950 ==

== ENCOUNTER → 2023-04-29 13:11 | Outpatient (BNVA) | payer MEDICAID, SELFPAY | PROVIDERS: PCP Family Medicine; Visit Provider Obstetrics & Gynecology | DX: O09.899 Supervision of other high risk pregnancies, unspecified trimester (principal); Z3A.28 28 weeks gestation of pregnancy | CPT/HCPCS: 76817 ==

== ENCOUNTER → 2023-05-12 08:36 | Outpatient (BNVA) | payer MEDICAID, SELFPAY | PROVIDERS: PCP Family Medicine; Visit Provider Obstetrics & Gynecology | DX: O09.899 Supervision of other high risk pregnancies, unspecified trimester (principal); Z3A.00 Weeks of gestation of pregnancy not specified | CPT/HCPCS: 82951; 82952; 84315 ==

== ENCOUNTER → 2023-05-26 08:02 | Outpatient (BNVA) | payer MEDICAID, SELFPAY | PROVIDERS: PCP Family Medicine; Visit Provider Obstetrics & Gynecology | DX: O09.899 Supervision of other high risk pregnancies, unspecified trimester (principal); Z3A.32 32 weeks gestation of pregnancy | CPT/HCPCS: 81000 ==

== ENCOUNTER → 2023-06-09 08:38 | Outpatient (BNVA) | payer MEDICAID, SELFPAY | PROVIDERS: PCP Family Medicine; Visit Provider Nurse Practitioner Women's Health | DX: O09.899 Supervision of other high risk pregnancies, unspecified trimester (principal); Z34.90 Encounter for supervision of normal pregnancy, unspecified, unspecified trimester; O34.43 Maternal care for other abnormalities of cervix, third trimester; Z98.890 Other specified postprocedural states; F32.1 Major depressive disorder, single episode, moderate; Z3A.34 34 weeks gestation of pregnancy | CPT/HCPCS: 84315; 85025 ==

== ENCOUNTER → 2023-06-23 11:46 | Outpatient (BNVA) | payer MEDICAID, SELFPAY | PROVIDERS: PCP Family Medicine; Visit Provider Obstetrics & Gynecology | DX: O09.899 Supervision of other high risk pregnancies, unspecified trimester (principal); Z3A.37 37 weeks gestation of pregnancy | CPT/HCPCS: 76816; 81000; 87081 ==

== ENCOUNTER → 2023-06-30 07:58 | Outpatient (BNVA) | payer MEDICAID, SELFPAY | PROVIDERS: PCP Family Medicine; Visit Provider Obstetrics & Gynecology | DX: O09.899 Supervision of other high risk pregnancies, unspecified trimester (principal); Z3A.37 37 weeks gestation of pregnancy | CPT/HCPCS: 81000 ==

== ENCOUNTER → 2023-07-14 08:00 | Outpatient (BNVA) | payer MEDICAID, SELFPAY | PROVIDERS: PCP Family Medicine; Visit Provider Obstetrics & Gynecology | DX: O09.899 Supervision of other high risk pregnancies, unspecified trimester (principal); Z3A.39 39 weeks gestation of pregnancy | CPT/HCPCS: 81000 ==

== ENCOUNTER → 2023-07-21 13:07 | Outpatient (BNVA) | payer MEDICAID, SELFPAY | PROVIDERS: PCP Family Medicine; Visit Provider Obstetrics & Gynecology | DX: O09.899 Supervision of other high risk pregnancies, unspecified trimester (principal); Z3A.00 Weeks of gestation of pregnancy not specified | CPT/HCPCS: 76819 ==

== ENCOUNTER 2023-07-21 14:00 | Outpatient (CLI) | payer MEDICAID, SELFPAY ==
[2023-07-21 14:00] VITALS: BMI 33.6
[2023-07-21 14:28] VITALS: TEMP 35.9
[2023-07-21 14:48] VITALS: BP 110/72; PULSE 90
== END 2023-07-21 15:12 | disposition home or self-care (01) ==
LOC: OPOB 14:08 → OBGYN 14:09
PROVIDERS: PCP Family Medicine; Visit Provider Obstetrics & Gynecology
DX: O36.8190 Decreased fetal movements, unspecified trimester, not applicable or unspecified (principal); Z3A.00 Weeks of gestation of pregnancy not specified
CPT/HCPCS: 59025; 81000; 99211

== ENCOUNTER 2023-07-22 19:03 | Observation (INO) | payer MEDICAID, SELFPAY ==
[2023-07-22] VITALS (12 sets, daily range): BP systolic 134–160; BP diastolic 75–94; PULSE 85–102; RESP 16; BMI 33.5
--- NOTE | 2023-07-22 20:40 | PM.OBGYHP ---
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 A1 EDC July 18, 2023 At 40 w 4 d No complications Admitted for induction of labor No c/o + active movements Medications/Allergies Home Medications Medication Instructions Recorded Confirmed Last Taken Type acetaminophen 325 mg tablet 325 mg PO QID PRN pain 09/01/21 07/22/23 Unknown History (Tylenol) ascorbate calcium (vitamin C) 500 500 mg PO DAILY 12/22/22 07/22/23 Unknown History mg tablet folic acid 1 mg tablet 1 mg PO DAILY 12/22/22 07/22/23 07/21/23 History vitamin#30 30 mg iron-10 1 cap PO DAILY 12/22/22 07/22/23 07/21/23 History mg iron-folic acid 1 mg-omg3 capsule buspirone 15 mg tablet See Rx Instructions .Route 06/10/23 07/22/23 07/21/23 Rx .COMPLEX #60 tabs Allergies Allergy/AdvReac Type Severity Reaction Status Date / Time No Known Allergies Allergy Verified 07/22/23 22:47 PFSH [employer] CONSULTANT PFSH: Medical History Post depression Cervical intraepithelial neoplasia grade 2 No pertinent past medical history Denies diabetes, asthma, hypertension, seizures, DVT/PE PCP: None History of toxoplasmosis Diagnosed at age 9. Has [facility] problems due to [facility] Toxo PCR negative, IgM negative, IgG positive. Surgical History Status post LEEP (loop electrosurgical excision procedure) of cervix 08/14/2021---LEEP procedure performed at [facility] [place] by Dr. Vargas for AYSE-2. 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 VS normal General: comfortable, awake, alert Lungs: clear Cor: RRR Abd: nontender FH 37 cm, cephalic Cervix: Ext: no edema External monitor: heart tracing good variability, + accelerations Data 07/22/23 19:50 Results Labs OB ([facility]): Obstetrics US 06/23/23 Obstetrics US/Biophysical Profile 07/21/23 Blood Type A Positive 07/22/23 Antibody Screen Negative 07/22/23 Hct 36.5 % (36-47) 07/22/23 Hgb 11.80 g/dL (11.27-16.99) 07/22/23 Rho(D) Type Rh positive 07/22/23 Plt Count 184 10^3/cmm (157-399) 07/22/23 Hep Bs Antigen Non-reactive (Nonreactive) 12/22/22 Hepatitis C Antibody Non-reactive (Nonreactive) 12/22/22 Rubella IgG Antibody 103.3 IU/mL (0.0-10.0) H 12/22/22 RPR Nonreactive (Nonreactive) 12/22/22 HIV 1&2 Ab & HIV 1 Ag Non-reactive (Non-Reactiv) 01/15/23 TSH 1.47 uIU/mL (0.27-4.20) 12/22/22 Free T4 0.77 ng/dL (0.82-1.77) L 12/04/20 C.trachomatis RNA (TMA) Not detected (NOT DETECTED) 01/20/23 N.gonorrhoeae RNA (TMA) Not detected (NOT DETECTED) 01/20/23 T. vaginalis Amp RNA Not detected (NOT DETECTED) 01/20/23 Chlamydia/GC Comment See note 01/20/23 Glucose 1 Hr 50 gm 152 mg/dL (85-140) H 04/26/23 Gest Glucose Tolerance mg/dL 05/12/23 Uric Acid 2.7 mg/dl (2.4-5.7) 11/21/18 HCG, Qual Positive (Negative) H 12/10/22 Urine Opiates Screen Negative ng/mL (Negative) 12/22/22 Ur Barbiturates Screen Negative ng/mL (Negative) 12/22/22 Ur Phencyclidine Scrn Negative ng/mL (Negative) 12/22/22 Ur Amphetamines Screen Negative ng/mL (Negative) 12/22/22 U Benzodiazepines Scrn Negative ng/mL (Negative) 12/22/22 Urine Cocaine Screen Negative ng/mL (Negative) 12/22/22 U Marijuana (THC) Screen Negative ng/mL (Negative) 12/22/22 Micro Urine Specimen 12/22/22 Pap Smear Interpret See note 02/18/23 A&P Assessment and plan (1) Encounter for induction of labor: 40 w 4 d Admitted for induction of labor Plan Cytotec 25 ug intravaginal x one Attestations Medical Necessity Statement*: patient at 40 w 4 d, admitted for induction of labor Coding Level of Care Code Acute Code for Chg Fwd Diagnoses Encounter for induction of labor Z34.90 Time Spent (min) 30
[2023-07-22 20:49] LABS: Basophils % 0.3 %; Eosinophils # 0.1 10^3/uL (0.0-0.8); Eosinophils % 0.9 %; Hematocrit 36.5 % (36-47); Lymphocytes # 2.5 10^3/uL (0.8-4.8); Lymphocytes % 33.4 %; Mean Corpuscular HGB Conc 32.3 g/dL (30-55); Mean Corpuscular Hemoglobin 27.8 pg (27-33); Mean Corpuscular Volume 86.1 fl (85-98); Mean Platelet Volume 12.6 fL (7.4-10.4); Monocytes # 0.6 10^3/uL (0.2-0.9); Monocytes % 8.3 %; Neutrophils # 4.23 10^3/uL (1.8-7.7); Neutrophils % 56.7 %; Nucleated Red Blood Cells % 0 %; Platelet Count 184 10^3/cmm (157-399); Red Blood Count 4.24 10^6/uL (3.85-5.65); Red Cell Distribution Width 15.2 % (12.1-15.1); White Blood Count 7.46 10^3/uL (3.29-11.43)
[2023-07-22] MEDS: miSOPROStol 100 mcg tablet 25 MCG VAGINAL (21:23)
[2023-07-23] VITALS (11 sets, daily range): BP systolic 132–143; BP diastolic 72–95; PULSE 84–102; RESP 16; TEMP 36.6
[2023-07-23] MEDS: miSOPROStol 100 mcg tablet 25 MCG VAGINAL (02:06)
== END 2023-07-23 11:20 | disposition home or self-care (01) ==
LOC: OPOB 19:03 → OBGYN 20:09
PROVIDERS: Admitting Provider Obstetrics & Gynecology; PCP Family Medicine; Visit Provider Obstetrics & Gynecology
DX: O61.0 Failed medical induction of labor (principal)
CPT/HCPCS: 36415; 59025; 85025; 86850; 86900; G0378

== ENCOUNTER 2023-07-25 07:37 | Inpatient (IN) | payer MEDICAID, SELFPAY ==
[2023-07-25] VITALS (78 sets, daily range): BP systolic 115–200; BP diastolic 58–105; PULSE 78–146; RESP 14–17; TEMP 36.4–37.3; O2SAT 90–100; BMI 32.9
[2023-07-25 08:16] LABS: Basophils % 0.2 %; Eosinophils % 0.3 %; Hematocrit 40.4 % (36-47); Lymphocytes # 1.9 10^3/uL (0.8-4.8); Mean Corpuscular HGB Conc 31.4 g/dL (30-55); Mean Corpuscular Hemoglobin 27.6 pg (27-33); Mean Corpuscular Volume 87.8 fl (85-98); Mean Platelet Volume 12.5 fL (7.4-10.4); Monocytes # 0.7 10^3/uL (0.2-0.9); Monocytes % 7.4 %; Neutrophils # 6.36 10^3/uL (1.8-7.7); Neutrophils % 70.7 %; Nucleated Red Blood Cells % 0 %; Platelet Count 173 10^3/cmm (157-399); Red Cell Distribution Width 15.4 % (12.1-15.1); White Blood Count 9.01 10^3/uL (3.29-11.43)
[2023-07-25 08:38] LABS: Alanine Aminotransferase 15 U/L (0-33); Albumin Level 3.2 g/dL (3.5-5.2); Alkaline Phosphatase 234 U/L (35-105); Anion Gap 16.1 (5-19); Aspartate Amino Transferase 19 U/L (0-32); Blood Urea Nitrogen 5 mg/dL (6-20); Calcium 8.5 mg/dL (8.5-10.5); Carbon Dioxide 20 mmol/L (22-29); Chloride 102 mmol/L (98-107); Globulin 3.5 g/dL (1.3-4.6); Glomerular Filtration Rate 254.7 mL/min (90-130); Glucose 82 mg/dL (65-115); Osmolality Calculated 274 mOsm/kg (285-295); Potassium 4.1 mmol/L (3.5-5.1); Sodium 134 mmol/L (136-145); Total Bilirubin 0.4 mg/dL (0.15-1.2); Total Protein 6.7 g/dL (6.6-8.7)
[2023-07-25 08:49] LABS: Urine Creatinine 68 mg/dL (28-217); Urine Protein Random 16 mg/dL
[2023-07-25 08:58] LABS: Creatinine Clr Calc Pharmacy 261.6187
[2023-07-25 09:01] LABS: UPRO/UCREAT Ratio 0.24 mg/mg CR
[2023-07-25 09:05] LABS: Add Urine Microscopic? YES; Bilirubin Urine Neg (Negative); Blood Urine 2+ (Negative); Glucose Urine UA Norm (Normal); Ketones Urine Negative (Negative); Leukocyte Esterase Urine Negative (Negative); Nitrate Urine Negative (Negative); Protein Urine Neg (Negative); Sulfosalicylic Acid Urine Negative (Negative); Urine Appearance Clear (CLEAR); Urine Color Yellow (Yellow); Urobilinogen Urine Norm (Negative); pH Urine 8 (5-7)
[2023-07-25 09:06] LABS: Add Urine Culture? No; Bacteria Urine 1+ /hpf; RBC Urine RARE /hpf (0-2); WBC Urine 0-4 /hpf (0-5)
[2023-07-25] MEDS: dextrose 5%-lactated ringers 1,000 ML 125 ML IV (09:23)
[2023-07-25] MEDS: oxytocin 30 UNIT/500 ML BAG IV (09:24)
--- NOTE | 2023-07-25 10:56 | PM.OPHPUD ---
Labor & Delivery H&P Update Date of Procedure: July 25, 2023 Date H&P Performed: 07/22/23 H&P update information: I have reviewed H&P completed within last 30 days, I have examined patient prior to procedure and No changes to prior documentation Admission Diagnosis:
[2023-07-25] MEDS: fentaNYL 50 mcg/mL INJ 2mL IVP ×2 (11:34→13:03)
[2023-07-25] MEDS: lactated ringers 1,000 ML 999 ML IV ×3 (13:55→17:41)
[2023-07-25] MEDS: ROPivacaine syringe 100 MG/50 ML SYRINGE 10 MG EPIDURAL (14:53)
--- NOTE | 2023-07-25 15:13 | ANES.PREANE2 ---
Pre-Anesthetic Assessment Height/Weight: Height 1.57 m Weight 81.647 kg Temp Pulse Resp BP Pulse Ox O2 Del Method 97.6 F 106 H 17 139/78 99 Room Air 07/25/23 12:00 07/25/23 15:10 07/25/23 13:03 07/25/23 15:10 07/25/23 15:07 07/25/23 08:48 Social No alcohol and No tobacco Exam alert and oriented x 3 History/ROS No significant history except as noted GI Gastroesophageal Reflux Disease Neuropsych Depression Anesthetic Plan ASA status: 2 Anesthesia: Regional (specify below) (Labor Epidural) Other: Risks and benefits disc in detail including permanent injuries. Informed written consent obtained. Medications/Allergies Home Medications Medication Instructions Recorded Confirmed Last Taken Type acetaminophen 325 mg tablet 325 mg PO QID PRN pain 09/01/21 07/22/23 Unknown History (Tylenol) ascorbate calcium (vitamin C) 500 500 mg PO DAILY 12/22/22 07/22/23 Unknown History mg tablet folic acid 1 mg tablet 1 mg PO DAILY 12/22/22 07/22/23 07/21/23 History vitamin#30 30 mg iron-10 1 cap PO DAILY 12/22/22 07/22/23 07/21/23 History mg iron-folic acid 1 mg-omg3 capsule buspirone 15 mg tablet See Rx Instructions .Route 06/10/23 07/22/23 07/21/23 Rx .COMPLEX #60 tabs Allergies Allergy/AdvReac Type Severity Reaction Status Date / Time No Known Allergies Allergy Verified 07/22/23 22:47 Current Medications Generic Name Dose Route Start Last Admin Trade Name Shweta PRN Reason Stop Dose Admin Fentanyl 25 - 100 mcg 07/25/23 07:35 07/25/23 13:03 Fentanyl 50 Mcg/Ml Inj 2ml IVP 50 mcg Q1H PRN Administration SEVERE PAIN Lactated Ringer's 1,000 mls @ 999 mls/hr 07/25/23 07:35 07/25/23 13:55 Lactated Ringers IV 999 mls/hr .Q1H1M PRN Administration Per L&D Rescitation Protocol Dextrose/Lactated Ringer's 1,000 mls @ 125 mls/hr 07/25/23 07:45 07/25/23 13:55 Dextrose 5%-Lactated Ringers IV Infused .Q8H BRAXTON Infusion Oxytocin 30 unit in 500 mls @ 1 mls/hr 07/25/23 08:30 07/25/23 11:30 Pitocin IV 5 milliunit/min .Q24H BRAXTON 5 mls/hr Titration Protocol 1 MILLIUNIT/MIN Lactated Ringer's 1,000 mls @ 999 mls/hr 07/25/23 13:50 07/25/23 14:52 Lactated Ringers IV 999 mls/hr .Q1H1M PRN Administration See label comments Ropivacaine 100 mg in 50 mls @ 10 mls/hr 07/25/23 14:00 07/25/23 14:53 Naropin Syringe EPIDURAL 10 mls/hr .Q5H BRAXTON Administration PFSH Anesthesia Medical History Post depression Cervical intraepithelial neoplasia grade 2 No pertinent past medical history Denies diabetes, asthma, hypertension, seizures, DVT/PE PCP: None History of toxoplasmosis Diagnosed at age 9. Has eye problems due to it [facility]: Toxo PCR negative, IgM negative, IgG positive. Surgical History Status post LEEP (loop electrosurgical excision procedure) of cervix 08/14/2021---LEEP procedure performed at [facility] [place] by Dr. Vargas for AYSE-2. 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 Post LEEP ECC was benign History of surgical removal of ganglion cyst 2010----left wrist [place] teeth extracted History of appendectomy 2007--laparoscopic procedure Family History Father Thyroid disease Family/Other Stroke Paternal great uncle Heart disease Maternal great aunt Grandfather Stroke Paternal Hypertension Paternal Denies family history of Colon cancer Ovarian cancer Diabetes Hyperlipidemia Breast cancer Uterine cancer Female Reproductive History : 5 Para: 5 Spontaneous abortions: Yes Data Anesthesia 07/25/23 07:55 07/25/23 07:55 Short CBC 07/25/23 Range/Units 07:55 WBC 9.01 (3.29-11.43) 10^3/uL Hgb 12.70 (11.27-16.99) g/dL Hct 40.4 (36-47) % MCV 87.8 (85-98) fl Plt Count 173 (157-399) 10^3/cmm Neut % (Auto) 70.7 % Neut # (Auto) 6.36 (1.8-7.7) 10^3/uL BMP 07/25/23 07:55 Sodium 134 L Potassium 4.1 Chloride 102 Carbon Dioxide 20 L BUN 5 L Creatinine 0.3 L Glucose 82 Calcium 8.5 Liver Function 07/25/23 Range/Units 07:55 Total Bilirubin 0.4 (0.15-1.2) mg/dL AST 19 (0-32) U/L ALT 15 (0-33) U/L Alkaline Phosphatase 234 H (35-105) U/L Albumin 3.2 L (3.5-5.2) g/dL Urine 07/25/23 Range/Units 08:15 Urine Color Yellow (Yellow) Urine Appearance Clear (CLEAR) Urine pH 8 H (5-7) Ur Specific [place] 1.010 (1.005-1.030) Urine Protein Neg (Negative) Urine Glucose (UA) Norm (Normal) Urine Ketones Negative (Negative) Urine Nitrate Negative (Negative) Urine Bilirubin Neg (Negative) Ur Leukocyte Esterase Negative (Negative) Urine RBC Rare (0-2) /hpf Urine WBC 0-4 H (0-5) /hpf Cardiac Studies: No Data to Display
--- NOTE | 2023-07-25 15:14 | ANES.PROC ---
Anesthesia Procedures Procedure/Date: 07/25/23 Epidural: Time Out Performed: Yes Consents Signed: Procedure Consent Lumbar Level: L4-L5 Epidural position: sitting Epidural procedure: sterile prep of area, 1% lidocaine to numb the area, 18 g needle, neg for paresthesia, test dose given, 1.5% xylocaine 1:200k epi, no systemic response and 0.2% Ropiavacaine @ mls/hr (12)
[2023-07-25] MEDS: miSOPROStol 200 mcg Tablet 800 MCG PR (17:01)
[2023-07-25] MEDS: tranexamic acid 1,000 MG/100 ML PREMIX 600 MG IV (17:04)
--- NOTE | 2023-07-25 17:06 | PM.DELIVERY ---
Delivery Note: Date of delivery: July 25, 2023 Pre-delivery diagnoses: Term delivered Post-delivery diagnoses: Same Procedure: Spontaneous vaginal delivery Delivering Physician: Anshu Montoya MD Estimated blood loss (mL): 500 Delivery: The patient was noted to be complete and pushing, so was placed in the dorsal lithotomy position, prepped and draped in the usual sterile fashion for a vaginal delivery. Pt. Noted to have epidural anesthesia. At 1644 the patient delivered a viable term at 41 weeks female infant weighing 3860g with scores of 8 and 8 at one and five minutes, respectively. The vertex was delivered spontaneously over intact perineum. The patient was asked to push and the head delivered spontaneously in the CONNIE position, over an intact perineum. A nuchal cord was checked and 1 noted, and relieved around head as necessary. The anterior shoulder delivered easily and the posterior shoulder followed. The remainder of the was easily delivered and the oropharynx and nasopharynx was bulb suctioned. The was noted to have spontaneous cry and spontaneous movement of all four extremities. The cord was clamped x 2 and cut and noted to have 2 arteries and one vein. The infant was passed to the mother's abdomen where nursing personnel were in attendance. The placenta delivered intact spontaneously and the uterus was explored. 20 units of Pitocin was placed in the IV bag to firm the uterus. Examination of the cervix and vaginal vault did not reveal any lacerations. A vaginal pack was then placed. Examination of the perineum showed a second-degree laceration. The laceration was repaired with 3-0 Vicryl in the normal fashion in a running non locking fashion to reapproximate the laceration in layers. The vaginal pack was then removed. Misoprostol, Methergine and TXA given per protocol to control bleeding. The patient tolerated this procedure well, and recovered in L&D with her in their LDR room. All sponge and needle counts were correct. Post-Delivery Status: good and Hemodynamically stable History History History 5 Term 3 0 Miscarriages/Ectopic 1 Living Children 3 A&P Assessment and plan (1) Post term , 41 weeks: Coding Level of Care Code Acute Code for Chg Fwd Diagnoses Post term , 41 weeks O48.0; Z3A.41
[2023-07-25] MEDS: carboprost tromethamine 250 mcg/mL Amp IM (17:14)
[2023-07-25] MEDS: ondansetron 2 mg/ML SDV 2 mL 4 MG IVP (17:22)
[2023-07-25] MEDS: oxytocin 30 UNIT/500 ML BAG 999 UNIT IV (17:43)
[2023-07-25 18:13] LABS: Hematocrit 33.1 % (36-47); Mean Corpuscular HGB Conc 32.6 g/dL (30-55); Mean Corpuscular Hemoglobin 28.5 pg (27-33); Mean Corpuscular Volume 87.3 fl (85-98); Mean Platelet Volume 12.2 fL (7.4-10.4); Platelet Count 165 10^3/cmm (157-399); Red Blood Count 3.79 10^6/uL (3.85-5.65); Red Cell Distribution Width 15.3 % (12.1-15.1); White Blood Count 13.35 10^3/uL (3.29-11.43)
--- NOTE | 2023-07-25 18:53 | PC.NURSE ---
pt had episode of loose stool. pt cleaned, chux changed.
--- NOTE | 2023-07-25 18:54 | PC.NURSE ---
Dr Montoya in to assess vaginal packing. outer packing removed, inner packing remains. per Dr Montoya, packing to remain until morning. Blue tail visible outside of vaginal opening Pt had episode of loose stool, iam care performed and pad/chux changed.
[2023-07-25] MEDS: benzocaine-menthol 78 gm Canister 1 SPRAY TOPICAL (19:28)
[2023-07-25] MEDS: ibuprofen 800 mg tablet PO (20:08)
[2023-07-26 01:00] VITALS: BP 116/71; PULSE 94; RESP 16; TEMP 36.8; O2SAT 98
[2023-07-26 03:00] VITALS: BP 110/78; PULSE 98; RESP 16; TEMP 36.8; O2SAT 97
[2023-07-26 05:43] LABS: Hematocrit 26.7 % (36-47); Mean Corpuscular HGB Conc 32.2 g/dL (30-55); Mean Corpuscular Hemoglobin 28.1 pg (27-33); Mean Corpuscular Volume 87.3 fl (85-98); Mean Platelet Volume 12.3 fL (7.4-10.4); Platelet Count 158 10^3/cmm (157-399); Red Blood Count 3.06 10^6/uL (3.85-5.65); Red Cell Distribution Width 15.7 % (12.1-15.1); White Blood Count 10.87 10^3/uL (3.29-11.43)
--- NOTE | 2023-07-26 06:49 | PC.NURSE ---
This nurse and Antonio Fournier RN removed vaginal packing at this time. Fundal rub performed with small amount of bleeding noted, uterus firm, midline, and at umbilicus.
[2023-07-26 06:58] VITALS: BP 121/82; PULSE 109; RESP 16; TEMP 36.8; O2SAT 100
--- NOTE | 2023-07-26 08:00 | ANE.PACU2 ---
Inpatient post-anesthesia follow up: Airway intact: Yes Vital signs: Temperature 97.8 F Pulse Rate 120 Respiratory Rate 18 Blood Pressure 131/73 Pulse Oximetry 99 Oxygen Delivery Me thod Room Air Oxygen Flow Rate Fraction of Inspir ed Oxygen Hydration adequate: Yes Nausea and vomiting: No Pain level: 1 Mental status: Baseline Epidural Start/End: Epidural Start Date: 07/25/23 Epidural Start Time: 14:28 Epidural End Date: 07/25/23 Epidural End Time: 18:03
[2023-07-26] MEDS: ibuprofen 800 mg tablet PO ×2 (08:39→15:46)
[2023-07-26] MEDS: PRENATAL VIT NO.130/IRON/FOLIC 1 EACH TABLET PO (08:39)
[2023-07-26 10:00] VITALS: BP 127/84; PULSE 114; RESP 15; TEMP 36.9; O2SAT 98
[2023-07-26 15:50] VITALS: BP 121/69; PULSE 119; RESP 16; TEMP 36.7; O2SAT 96
[2023-07-26 19:50] VITALS: BP 131/73; PULSE 120; RESP 18; TEMP 36.6; O2SAT 99
== END 2023-07-26 19:55 | disposition home or self-care (01) | DRG 807 ==
LOC: OBGYN 09:33
PROVIDERS: Admitting Provider Obstetrics & Gynecology; PCP Family Medicine; Visit Provider Obstetrics & Gynecology
DX: O48.0 Post-term pregnancy (principal); Z37.0 Single live birth; Z3A.41 41 weeks gestation of pregnancy; O70.1 Second degree perineal laceration during delivery; O69.81X0 Labor and delivery complicated by cord around neck, without compression, not applicable or unspecified
CPT/HCPCS: 36415; 51702; 59409; 80053; 81001; 82570; 84156; 84550; 85025; 85027; 96372; 96374; 96376; J2405; J2590; J2795; J3010; J7120; J7121

== ENCOUNTER → 2024-01-17 15:29 | Outpatient (BNVA) | payer MEDICAID, SELFPAY | PROVIDERS: PCP Family Medicine; Visit Provider Obstetrics & Gynecology | DX: Z12.4 Encounter for screening for malignant neoplasm of cervix (principal) | CPT/HCPCS: 87624 ==

== ENCOUNTER → 2024-02-22 13:08 | Outpatient (BNVA) | payer MEDICAID, SELFPAY | PROVIDERS: PCP Family Medicine; Visit Provider Nurse Practitioner | DX: J02.9 Acute pharyngitis, unspecified (principal); J03.80 Acute tonsillitis due to other specified organisms; B96.89 Other specified bacterial agents as the cause of diseases classified elsewhere | CPT/HCPCS: 87071; 87880 ==

== ENCOUNTER → 2024-07-17 15:01 | Outpatient (BNVA) | payer MEDICAID, SELFPAY | PROVIDERS: PCP Family Medicine; Visit Provider Obstetrics & Gynecology | DX: N87.1 Moderate cervical dysplasia (principal) | CPT/HCPCS: 87624 ==